=== PATIENT | female | born 1975 | race Caucasian/White ===

== ENCOUNTER 2020-07-16 02:07 | Outpatient (CLI) | payer BC | END 2020-07-16 23:59 | disposition home or self-care (01) | LOC: RAD 02:07 | PROVIDERS: ATTEND Physician Assistant | DX: M25.511 Pain in right shoulder (principal); M25.512 Pain in left shoulder | CPT/HCPCS: 73030 ==

== ENCOUNTER 2020-08-23 11:28 | Outpatient (CLI) | payer BC ==
[2020-08-23 12:59] LABS: BASOPHILS % (AUTO) 0.4 % (0-1); EOSINOPHILS # (AUTO) 0.1 X10'3 (0-0.9); EOSINOPHILS % (AUTO) 1.1 % (0-6); HEMATOCRIT 38.6 % (35.0-45.0); HEMOGLOBIN 12.8 g/dl (12.0-16.0); LYMPHOCYTES # (AUTO) 2.6 X10'3 (1.1-4.8); LYMPHOCYTES % (AUTO) 34.8 % (21-51); MEAN CORPUSCULAR HEMOGLOBIN 31.2 PG (27.0-31.0); MEAN CORPUSCULAR HGB CONC 33.1 g/dL (33.0-36.5); MEAN CORPUSCULAR VOLUME 94.3 FL (78-98); MEAN PLATELET VOLUME 8.7 FL (7.4-10.4); MONOCYTES # (AUTO) 0.8 X10'3 (0-0.9); MONOCYTES % (AUTO) 10.2 % (2-12); NEUTROPHILS # (AUTO) 3.9 X10'3 (1.8-7.7); NEUTROPHILS % (AUTO) 53.5 % (42-75); PLATELET COUNT 193 X10'3 (140-440); RED CELL DISTRIBUTION WIDTH 12.6 % (11.5-14.5); WHITE BLOOD COUNT 7.3 X10'3 (4.5-11.0)
[2020-08-23 14:02] LABS: ALANINE AMINOTRANSFERASE 24 U/L (12-78); ALBUMIN 4.2 G/DL (3.4-5.0); ALBUMIN/GLOBULIN RATIO 1.2 (1.1-1.5); ALKALINE PHOSPHATASE 41 IU/L (46-116); ANION GAP 11 (8-16); ASPARTATE AMINO TRANSFERASE 13 U/L (10-37); BILIRUBIN,TOTAL 0.8 MG/DL (0.1-1.0); BLOOD UREA NITROGEN 21 MG/DL (7-18); BUN/CREATININE RATIO 26.3 (6.6-38.0); CALCIUM 8.7 MG/DL (8.5-10.1); CHLORIDE 104 MMOL/L (99-107); CHOL/HDL RATIO 4.1 (0.00-4.99); CHOLESTEROL 231 MG/DL (0-200); GLUCOSE 94 MG/DL (70-104); HDL CHOLESTEROL 56 MG/DL (35-60); LDL CHOLESTEROL 149 MG/DL (50-100); POTASSIUM 4.3 MMOL/L (3.5-5.1); SODIUM 141 MMOL/L (135-145); TOTAL CARBON DIOXIDE 26.2 MMOL/L (24-32); TOTAL PROTEIN 7.6 G/DL (6.4-8.2); TRIGLYCERIDES 73 MG/DL (20-135); eGFR 78 ML/MIN
== END 2020-08-23 23:59 | disposition home or self-care (01) ==
LOC: RAD 11:28
PROVIDERS: ATTEND Physician Assistant
DX: J45.909 Unspecified asthma, uncomplicated (principal); M19.011 Primary osteoarthritis, right shoulder; M94.211 Chondromalacia, right shoulder; Z00.00 Encounter for general adult medical examination without abnormal findings
CPT/HCPCS: 36415; 73221; 80053; 80061; 82306; 84439; 84443; 85025

== ENCOUNTER 2021-07-07 23:08 | Emergency (ER) | payer OTHER ==
[~2021-07-07] VITALS: Ht 170.2 cm; Wt 71.2 kg
[2021-07-07 23:15] VITALS: BP 127/90
== END 2021-07-08 00:44 | disposition home or self-care (01) ==
LOC: ER 23:09
DX: S69.92XA Unspecified injury of left wrist, hand and finger(s), initial encounter (principal); Z88.0 Allergy status to penicillin; Z88.2 Allergy status to sulfonamides; X58.XXXA Exposure to other specified factors, initial encounter; Y93.89 Activity, other specified; Y92.89 Other specified places as the place of occurrence of the external cause; Y99.8 Other external cause status
CPT/HCPCS: 99281; 99283

== ENCOUNTER 2021-10-31 14:37 | Outpatient (CLI) | payer BC | END 2021-10-31 23:59 | disposition home or self-care (01) | LOC: VAS 14:37 | PROVIDERS: ATTEND Family Medicine | DX: R60.0 Localized edema (principal) | CPT/HCPCS: 93970 ==

== ENCOUNTER 2022-01-12 10:05 | Outpatient (CLI) | payer BC ==
[2022-01-12 11:26] LABS: BASOPHILS % (AUTO) 0.6 % (0-1); EOSINOPHILS # (AUTO) 0.1 X10'3 (0-0.9); EOSINOPHILS % (AUTO) 1.4 % (0-6); HEMATOCRIT 34.5 % (35.0-45.0); HEMOGLOBIN 11.9 g/dl (12.0-16.0); LYMPHOCYTES # (AUTO) 2.1 X10'3 (1.1-4.8); LYMPHOCYTES % (AUTO) 34.4 % (21-51); MEAN CORPUSCULAR HEMOGLOBIN 31.3 PG (27.0-31.0); MEAN CORPUSCULAR HGB CONC 34.3 g/dL (33.0-36.5); MEAN CORPUSCULAR VOLUME 91.1 FL (78-98); MEAN PLATELET VOLUME 9.3 FL (7.4-10.4); MONOCYTES # (AUTO) 0.5 X10'3 (0-0.9); MONOCYTES % (AUTO) 7.7 % (2-12); NEUTROPHILS # (AUTO) 3.4 X10'3 (1.8-7.7); NEUTROPHILS % (AUTO) 55.9 % (42-75); PLATELET COUNT 199 X10'3 (140-440); RED BLOOD COUNT 3.79 X10'6 (4.20-5.60); RED CELL DISTRIBUTION WIDTH 12.8 % (11.5-14.5); WHITE BLOOD COUNT 6.1 X10'3 (4.5-11.0)
[2022-01-12 11:31] LABS: ALANINE AMINOTRANSFERASE 22 U/L (12-78); ALBUMIN 4.2 G/DL (3.4-5.0); ALBUMIN/GLOBULIN RATIO 1.3 (1.1-1.5); ALKALINE PHOSPHATASE 33 IU/L (46-116); ANION GAP 11 (8-16); ASPARTATE AMINO TRANSFERASE 15 U/L (10-37); BILIRUBIN,TOTAL 0.6 MG/DL (0.1-1.0); BLOOD UREA NITROGEN 16 MG/DL (7-18); BUN/CREATININE RATIO 20.8 (6.6-38.0); CALCIUM 8.7 MG/DL (8.5-10.1); CHLORIDE 108 MMOL/L (99-107); CREATININE 0.77 MG/DL (0.40-0.90); GLUCOSE 105 MG/DL (70-104); POTASSIUM 4.1 MMOL/L (3.5-5.1); SODIUM 144 MMOL/L (135-145); TOTAL CARBON DIOXIDE 24.8 MMOL/L (24-32); TOTAL PROTEIN 7.5 G/DL (6.4-8.2); eGFR 81 ML/MIN
[2022-01-12 11:40] LABS: CHOL/HDL RATIO 3.6 (0.00-4.99); CHOLESTEROL 235 MG/DL (0-200); HDL CHOLESTEROL 66 MG/DL (35-60); LDL CHOLESTEROL 142 MG/DL (50-100); TRIGLYCERIDES 53 MG/DL (20-135)
[2022-01-13 12:16] LABS: THIIODOTHRONINE, FREE, SERUM 2.9 pg/mL (2.0-4.4)
== END 2022-01-12 23:59 | disposition home or self-care (01) ==
LOC: LAB 10:05
PROVIDERS: ATTEND Physician Assistant
DX: Z00.00 Encounter for general adult medical examination without abnormal findings (principal); R60.9 Edema, unspecified; Z79.899 Other long term (current) drug therapy
CPT/HCPCS: 36415; 80053; 80061; 82306; 84439; 84443; 84481; 85025

== ENCOUNTER 2024-02-25 08:38 | Inpatient (IN) | payer BC ==
[~2024-02-25] VITALS: Ht 170.2 cm; Wt 72.7 kg
[2024-02-25 09:03] LABS: BASOPHILS % (AUTO) 0.3 % (0-1); EOSINOPHILS # (AUTO) 0.1 X10'3 (0-0.9); EOSINOPHILS % (AUTO) 0.8 % (0-6); HEMOGLOBIN 13.4 g/dl (12.0-16.0); LYMPHOCYTES # (AUTO) 2.5 X10'3 (1.1-4.8); LYMPHOCYTES % (AUTO) 33.8 % (21-51); MEAN CORPUSCULAR HEMOGLOBIN 30.6 PG (27.0-31.0); MEAN CORPUSCULAR HGB CONC 32.7 g/dL (33.0-36.5); MEAN CORPUSCULAR VOLUME 93.6 FL (78-98); MEAN PLATELET VOLUME 8.9 FL (7.4-10.4); MONOCYTES # (AUTO) 0.7 X10'3 (0-0.9); MONOCYTES % (AUTO) 8.9 % (2-12); NEUTROPHILS # (AUTO) 4.1 X10'3 (1.8-7.7); NEUTROPHILS % (AUTO) 56.2 % (42-75); PLATELET COUNT 233 X10'3 (140-440); RED BLOOD COUNT 4.38 X10'6 (4.20-5.60); WHITE BLOOD COUNT 7.4 X10'3 (4.5-11.0)
[2024-02-25 09:22] LABS: ALANINE AMINOTRANSFERASE 25 U/L (12-78); ALBUMIN 4.3 G/DL (3.4-5.0); ALBUMIN/GLOBULIN RATIO 1.2 (1.1-1.5); ALKALINE PHOSPHATASE 37 IU/L (46-116); ANION GAP 11 (8-16); ASPARTATE AMINO TRANSFERASE 29 U/L (10-37); BILIRUBIN,TOTAL 0.7 MG/DL (0.1-1.0); BLOOD UREA NITROGEN 16 MG/DL (7-18); BUN/CREATININE RATIO 18.6 (10.0-20.0); CALCIUM 9.2 MG/DL (8.5-10.1); CHLORIDE 106 MMOL/L (99-107); CREATININE 0.86 MG/DL (0.40-0.90); GLUCOSE 120 MG/DL (70-104); SODIUM 140 MMOL/L (135-145); TOTAL CARBON DIOXIDE 23.4 MMOL/L (24-32); TOTAL PROTEIN 7.9 G/DL (6.4-8.2); eCRCL 79 ML/MIN; eGFR 71 ML/MIN
[2024-02-25 09:28] LABS: PRO BRAIN NATRIURETIC PEPTIDE 33 PG/ML (0-125)
[2024-02-25 09:54] LABS: MAGNESIUM 1.9 MG/DL (1.5-2.4)
[2024-02-25 10:00] VITALS: BP 125/79; PULSE 97; RESP 12; TEMP 98; O2SAT 97
[2024-02-25 10:59] LABS: APTT 26 SECONDS (22-32); PROTHROMBIN TIME 10.4 SECONDS (9.0-12.0)
[2024-02-25] MEDS: normal saline 1000ML IV soln IVB ONE (11:02)
[2024-02-25] MEDS: aspirin 81mg tab.chew PO ONE (11:02)
[2024-02-25 12:46] LABS: C-REACTIVE PROTEIN 0.05 MG/DL (0.0-0.5)
[2024-02-25] MEDS: acetaminophen 325mg tablet PO ONE (13:40)
[2024-02-25] MEDS ORDERED: magnesium hydroxide 30ml (MOM) UD suspension PO PRN (14:05)
[2024-02-25] MEDS ORDERED: acetaminophen 325mg tablet PO PRN (14:05)
[2024-02-25] MEDS ORDERED: magnesium sulf-water 2g/50mL 50 ML IV PRN (14:05)
[2024-02-25] MEDS ORDERED: magnesium Cl slow-release 64mg tablet PO PRN (14:05)
[2024-02-25] MEDS ORDERED: potassium Cl 40MEQ/1/2NS 520ml 520 ML IV PRN (14:05)
[2024-02-25] MEDS ORDERED: potassium Cl 20 mEq SR tablet PO PRN ×2 (14:05)
[2024-02-25] MEDS ORDERED: magnesium sulf-water 4G/100mL 100 ML IV PRN (14:05)
[2024-02-25] MEDS ORDERED: mag hydrox/Alum hydrox/simeth 30ml oral suspension PO PRN (14:05)
[2024-02-25] MEDS ORDERED: ondansetron/PF 4mg/2ml inj IV PRN (14:05)
[2024-02-25 15:01] LABS: MAGNESIUM 1.9 MG/DL (1.5-2.4); THYROID STIMULATING HORMONE 1.26 ulU/ml (0.34-4.50)
[2024-02-25 20:00] VITALS: BP_SYST 121; BP_SYST 125; BP_SYST 127; BP_DIAS 76; BP_DIAS 79; BP_DIAS 83; PULSE 70; PULSE 76; RESP 12; O2SAT 97
[2024-02-25] MEDS: docusate sod 100mg capsule PO SCH (20:00)
[2024-02-25] MEDS: K and/or MAG REPLACEMENT MC SCH (20:00)
[2024-02-25] MEDS: acetaminophen 325mg tablet PO PRN (20:11)
[2024-02-26 02:00] VITALS: BP 103/68; PULSE 97; RESP 14; TEMP 98; O2SAT 97
[2024-02-26 06:00] VITALS: BP 107/70; PULSE 75; RESP 14; TEMP 97.8; O2SAT 98
[2024-02-26 06:23] LABS: BASOPHILS % (AUTO) 0.3 % (0-1); EOSINOPHILS # (AUTO) 0.1 X10'3 (0-0.9); EOSINOPHILS % (AUTO) 2.1 % (0-6); HEMATOCRIT 35.5 % (35.0-45.0); HEMOGLOBIN 11.7 g/dl (12.0-16.0); LYMPHOCYTES # (AUTO) 2.9 X10'3 (1.1-4.8); LYMPHOCYTES % (AUTO) 42.7 % (21-51); MEAN CORPUSCULAR HEMOGLOBIN 30.5 PG (27.0-31.0); MEAN CORPUSCULAR VOLUME 92.6 FL (78-98); MEAN PLATELET VOLUME 9.4 FL (7.4-10.4); MONOCYTES # (AUTO) 0.7 X10'3 (0-0.9); MONOCYTES % (AUTO) 10.6 % (2-12); NEUTROPHILS % (AUTO) 44.3 % (42-75); PLATELET COUNT 185 X10'3 (140-440); RED BLOOD COUNT 3.83 X10'6 (4.20-5.60); RED CELL DISTRIBUTION WIDTH 13.1 % (11.5-14.5); WHITE BLOOD COUNT 6.9 X10'3 (4.5-11.0)
[2024-02-26 06:43] LABS: ALANINE AMINOTRANSFERASE 22 U/L (12-78); ALBUMIN 3.4 G/DL (3.4-5.0); ALBUMIN/GLOBULIN RATIO 1.2 (1.1-1.5); ALKALINE PHOSPHATASE 27 IU/L (46-116); ANION GAP 10 (8-16); ASPARTATE AMINO TRANSFERASE 32 U/L (10-37); BILIRUBIN,TOTAL 0.5 MG/DL (0.1-1.0); BLOOD UREA NITROGEN 13 MG/DL (7-18); BUN/CREATININE RATIO 18.3 (10.0-20.0); CALCIUM 8.7 MG/DL (8.5-10.1); CHLORIDE 109 MMOL/L (99-107); CHOL/HDL RATIO 3.6 (0.00-4.99); CHOLESTEROL 186 MG/DL (0-200); CREATININE 0.71 MG/DL (0.40-0.90); GLUCOSE 113 MG/DL (70-104); HDL CHOLESTEROL 52 MG/DL (35-60); LDL CHOLESTEROL 110 MG/DL (50-100); POTASSIUM 3.8 MMOL/L (3.5-5.1); SODIUM 142 MMOL/L (135-145); TOTAL CARBON DIOXIDE 22.6 MMOL/L (24-32); TOTAL PROTEIN 6.2 G/DL (6.4-8.2); TRIGLYCERIDES 100 MG/DL (20-135); eCRCL 95 ML/MIN; eGFR 88 ML/MIN
[2024-02-26 11:00] VITALS: BP 118/73; PULSE 69; RESP 16; TEMP 97.4; O2SAT 98
[2024-02-26 15:00] VITALS: BP 112/76; PULSE 73; RESP 12; TEMP 98; O2SAT 98
== END 2024-02-26 17:13 | disposition home or self-care (01) | DRG 311 ==
LOC: ER 08:39 → ED HOLD 11:28 → UNDOADMIN 11:28 → ED HOLD 14:12 → PCU 3S 21:57
PROVIDERS: ADMIT Internal Medicine; ATTEND Internal Medicine
PROC: 4A00X4Z Measurement of Central Nervous Electrical Activity, External Approach (ICD-10-PCS; principal; 2024-02-26)
DX: I20.0 Unstable angina (principal); R55 Syncope and collapse; Z88.0 Allergy status to penicillin; Z88.2 Allergy status to sulfonamides; Z88.5 Allergy status to narcotic agent
CPT/HCPCS: 36415; 70450; 70551; 71045; 80053; 80061; 83036; 83735; 83880; 84443; 84484; 85025; 85610; 85651; 85730; 86140; 87081; 93005; 93306; 93880; 95816; 96360; 99285; G0378; J7030

== ENCOUNTER 2024-05-13 07:47 | Outpatient (CLI) | payer BC ==
[2024-05-13] VITALS (21 sets, daily range): BP systolic 107–131; BP diastolic 57–91; PULSE 67–86
== END 2024-05-13 23:59 | disposition home or self-care (01) ==
LOC: CARD DIAG 07:47
PROVIDERS: ATTEND Student in an Organized Health Care Education/Training Program
DX: R42 Dizziness and giddiness (principal); R40.4 Transient alteration of awareness
CPT/HCPCS: 93660